=== PATIENT | female | born 1945 | race Caucasian/White ===

== ENCOUNTER 2017-07-05 11:07 | Observation (INO) | payer MEDICARE, MEDICAID ==
[2017-07-05 11:21] VITALS: BMI 24.5
[2017-07-05 13:07] LABS: BASO # 0.1 K/uL (0.0-0.2); BASO % 0.8 % (0.0-2.0); EOS # 0.2 K/uL (0.0-0.7); EOS % 2.5 % (0.0-4.0); HEMATOCRIT 33.9 % (34.0-47.0); LYMPH # 1.6 K/uL (1.0-4.3); LYMPH % 20.9 % (20.0-40.0); MEAN CORPUSCULAR HGB CONC 33.2 g/dL (33.0-37.0); MEAN PLATELET VOLUME 7.7 fL (7.2-11.7); MONO # 0.6 K/uL (0.0-0.8); NRBC % 0.1 % (0.0-2.0); RED CELL DISTRIBUTION WIDTH 16.2 % (11.5-14.5); WHITE BLOOD COUNT 7.9 K/uL (4.8-10.8)
[2017-07-05 13:08] LABS: MEAN CELL VOLUME 99.5 fL (81.0-99.0)
[2017-07-05 13:09] LABS: ALB/GLOB RATIO 1.3 (1.0-2.1); BILIRUBIN,TOTAL 0.9 mg/dL (0.2-1.3); CALCIUM 10.2 mg/dl (8.6-10.4); POTASSIUM 5.4 mmol/L (3.6-5.2)
--- NOTE | 2017-07-05 14:52 | CP.PCM.CON ---
History of Present Illness - History of Present Illness History of Present Illness: renal note: pt just returned from [facility], was there for 2 months feels well no complaints such as SOB, pain had appendectomy 1 month ago labs and vitals reviewed PLAN dialysis today as ordered, TTS schedule check hepatitis serology as ordered social work manager consult to re-arrange for outpt HD, pt has spot to go for outpt HD on once arranged for outpt HD, she can be d/c from renal perspective d/w daughter d/w ER staff Past Patient History - Past Medical History & Family History Past Medical History?: Yes - Past Social History Smoking Status: Former Smoker - CARDIAC Hx Cardiac Disorders: Yes Hx Hypercholesterolemia: Yes Hx Hypertension: Yes - PULMONARY Hx Respiratory Disorders: No - NEUROLOGICAL Hx Neurological Disorder: No - HEENT Hx HEENT Problems: Yes Hx Cataracts: Yes (bilateral) - RENAL Hx Chronic Kidney Disease: Yes Other/Comment: L AV upper arm shunt. TTS dialysis - ENDOCRINE/METABOLIC Hx Endocrine Disorders: Yes Hx Hypothyroidism: Yes - HEMATOLOGICAL/ONCOLOGICAL Hx Blood Disorders: Yes Hx Anemia: Yes - INTEGUMENTARY Hx Dermatological Problems: No - MUSCULOSKELETAL/RHEUMATOLOGICAL Hx Falls: No - GASTROINTESTINAL Hx Gastrointestinal Disorders: Yes Hx Gastroesophageal Reflux: Yes - GENITOURINARY/GYNECOLOGICAL Hx Genitourinary Disorders: No - PSYCHIATRIC Hx Substance Use: No - SURGICAL HISTORY Hx Surgeries: Yes Hx Appendectomy: Yes Hx Coronary Stent: Yes Other/Comment: left AV shunt placement october 21 2015. Uterus removal 2012. cataract surgery - ANESTHESIA Hx Anesthesia: Yes Hx Anesthesia Reactions: No Hx Malignant Hyperthermia: No Meds Allergies/Adverse Reactions: Allergies Allergy/AdvReac Type Severity Reaction Status Date / Time Penicillins Allergy Verified 07/05/17 11:20 Results - Vital Signs Recent Vital Signs: Last Vital Signs Temp 97.3 F L 07/05/17 12:11 Pulse 81 07/05/17 13:10 Resp 18 07/05/17 13:10 BP 105/76 07/05/17 13:10 Pulse Ox 100 07/05/17 13:10 - Labs Result Diagrams: 07/05/17 12:47 07/05/17 12:47 Labs: Laboratory Results - last 24 hr 07/05/17 07/05/17 12:47 12:47 WBC 7.9 RBC 3.41 L Hgb 11.3 D Hct 33.9 L MCV 99.5 H D MCH 33.0 H MCHC 33.2 RDW 16.2 H Plt Count 284 MPV 7.7 Neut % (Auto) 68.8 Lymph % (Auto) 20.9 [place] % (Auto) 7.0 Eos % (Auto) 2.5 Baso % (Auto) 0.8 Neut # 5.4 Lymph # 1.6 [place] # 0.6 Eos # 0.2 Baso # 0.1 Sodium 136 Potassium 5.4 H Chloride 99 Carbon Dioxide 23 Anion Gap 19 BUN 60 H Creatinine 6.9 H Est GFR ( Amer) 7 Est GFR (Non-Af Amer) 6 Random Glucose 71 Calcium 10.2 Total Bilirubin 0.9 AST 34 ALT 28 Alkaline Phosphatase 67 Total Protein 8.0 Albumin 4.4 Globulin 3.5 Albumin/Globulin Ratio 1.3
--- NOTE | 2017-07-05 14:56 | C.PDOC ---
History Of Present Illness Pt went to [facility] for 2 months and returned 2 days ago. However she is in the ED because her dialysis center would not take her back and she is due for dialysis today. Time Seen by Provider: 07/05/17 12:00 Chief Complaint (Nursing): Medical Clearance History Per: Patient, Family Onset/Duration Of Symptoms: Days (3) Current Symptoms Are (Timing): Still Present Severity: Moderate Recent travel outside of the [place]: Yes (to [facility]) Additional History Per: Prior Records Past Medical History Reviewed: Historical Data, Nursing Documentation, Vital Signs Vital Signs: Last Vital Signs Temp 97.3 F L 07/05/17 12:11 Pulse 81 07/05/17 13:10 Resp 18 07/05/17 13:10 BP 105/76 07/05/17 13:10 Pulse Ox 100 07/05/17 13:10 - Medical History PMH: Anemia, Arthritis, Diabetes, HTN, Hypercholesterolemia, Hypothyroidism, Malignancy (Breast), Osteoporosis, End Stage Renal Disease (on Hemodialysis), Chronic Kidney Disease Surgical History: Appendectomy, Coronary Stent - [facility] Procedures BYPASS L AXILLA ART TO UP ARM VEIN W AUTOL ART, OPEN (10/14/15) DPT ADMINISTRATION (03/15/13) DX ULTRASOUND-HEAD/NECK (06/20/13) EXTIRPATION OF MATTER FROM L BRACH ART, OPEN APPROACH (10/14/15) IMMOBILIZ/WOUND ATTN NEC (03/15/13) LAPAROSCOPIC CHOLECYSTECTOMY (05/07/13) OTHER LAPAROSCOPIC UMBILICAL HERNIORRHAPHY (05/07/13) PERCUTAN NEEDLE BX OF THYROID GLAND (06/20/13) PERFORMANCE OF URINARY FILTRATION, MULTIPLE (11/17/15) Family History: States: Unknown Family Hx - Social History Hx Tobacco Use: Yes Hx Alcohol Use: No Hx Substance Use: No - Immunization History Hx Tetanus Toxoid Vaccination: Yes Hx Influenza Vaccination: Yes Hx Pneumococcal Vaccination: Yes Review Of Systems Except As Marked, All Systems Reviewed And Found Negative. Constitutional: Negative for: Fever Cardiovascular: Negative for: Chest Pain Respiratory: Negative for: Shortness of Breath Gastrointestinal: Negative for: Vomiting, Abdominal Pain Musculoskeletal: Negative for: Neck Pain, Back Pain Neurological: Negative for: Weakness, Numbness Physical Exam - Physical Exam Appears: Non-toxic, No Acute Distress, Chronically Ill Skin: Normal Color, Warm, Dry, No Rash Head: Atraumatic, Normacephalic Eye(s): bilateral: PERRL, EOMI Neck: Normal ROM, Supple Cardiovascular: Rhythm Regular Respiratory: Normal Breath Sounds, No Accessory Muscle Use Gastrointestinal/Abdominal: Soft, No Tenderness Extremity: Normal ROM, Other (dialysis fistula on left arm with good thrill) Neurological/Psych: Oriented x3, Normal Motor, Normal Sensation ED Course And Treatment - Laboratory Results Result Diagrams: 07/05/17 12:47 07/05/17 12:47 ECG: Interpreted By Me, Viewed By Me ECG Rhythm: Sinus Rhythm, Nonspecific Changes ECG Interpretation: No Acute Changes Rate From EC O2 Sat by Pulse Oximetry: 100 Pulse Ox Interpretation: Normal - Physician Consult Information Physician Contacted: Chente James (Renal) Outcome Of Conversation: He will dialyse pt today. Disposition Discussed With : Varghese Jett Comment: He accepted pt on his service. Doctor Will See Patient In The: Hospital Counseled Patient/Family Regarding: Studies Performed, Diagnosis - Disposition Disposition: HOSPITALIZED Disposition Time: 14:59 Condition: FAIR - Clinical Impression Clinical Impression: ESRD needing dialysis
--- NOTE | 2017-07-05 17:40 | CP.PCM.HP ---
Past Patient History - Past Medical History & Family History Past Medical History?: Yes - Past Social History Smoking Status: Former Smoker - CARDIAC Hx Hypercholesterolemia: Yes Hx Hypertension: Yes - PULMONARY Hx Respiratory Disorders: No - NEUROLOGICAL Hx Neurological Disorder: No - HEENT Hx HEENT Problems: Yes Hx Cataracts: Yes (bilateral) - RENAL Hx Chronic Kidney Disease: Yes - ENDOCRINE/METABOLIC Hx Hypothyroidism: Yes - HEMATOLOGICAL/ONCOLOGICAL Hx Anemia: Yes - INTEGUMENTARY Hx Dermatological Problems: No - MUSCULOSKELETAL/RHEUMATOLOGICAL Hx Arthritis: Yes Hx Osteoporosis: Yes - GASTROINTESTINAL Hx Gastrointestinal Disorders: Yes Hx Gastroesophageal Reflux: Yes - GENITOURINARY/GYNECOLOGICAL Hx Genitourinary Disorders: No - PSYCHIATRIC Hx Substance Use: No - SURGICAL HISTORY Hx Appendectomy: Yes Hx Coronary Stent: Yes - ANESTHESIA Hx Anesthesia: Yes Hx Anesthesia Reactions: No Hx Malignant Hyperthermia: No Meds Allergies/Adverse Reactions: Allergies Allergy/AdvReac Type Severity Reaction Status Date / Time Penicillins Allergy Verified 07/05/17 11:20 Physical Exam - Constitutional Appears: Well - Head Exam Head Exam: ATRAUMATIC, NORMAL INSPECTION, NORMOCEPHALIC - Eye Exam Eye Exam: EOMI, Normal appearance, PERRL Pupil Exam: NORMAL ACCOMODATION, PERRL - ENT Exam ENT Exam: Mucous Membranes Moist, Normal Exam - Neck Exam Neck exam: Positive for: Normal Inspection - Respiratory Exam Respiratory Exam: Decreased Breath Sounds - Cardiovascular Exam Cardiovascular Exam: REGULAR RHYTHM, +S1, +S2 - GI/Abdominal Exam GI & Abdominal Exam: Diminished Bowel Sounds, Soft - Rectal Exam Rectal Exam: Deferred Results - Vital Signs Recent Vital Signs: Last Vital Signs Temp 97.6 F 07/05/17 16:35 Pulse 68 07/05/17 16:35 Resp 18 07/05/17 16:35 BP 190/109 H 07/05/17 17:05 Pulse Ox 96 07/05/17 16:35 - Labs Result Diagrams: 07/05/17 12:47 07/05/17 12:47 Labs: Laboratory Results - last 24 hr 07/05/17 07/05/17 07/05/17 12:47 12:47 15:10 WBC 7.9 RBC 3.41 L Hgb 11.3 D Hct 33.9 L MCV 99.5 H D MCH 33.0 H MCHC 33.2 RDW 16.2 H Plt Count 284 MPV 7.7 Neut % (Auto) 68.8 Lymph % (Auto) 20.9 [place] % (Auto) 7.0 Eos % (Auto) 2.5 Baso % (Auto) 0.8 Neut # 5.4 Lymph # 1.6 [place] # 0.6 Eos # 0.2 Baso # 0.1 Sodium 136 Potassium 5.4 H Chloride 99 Carbon Dioxide 23 Anion Gap 19 BUN 60 H Creatinine 6.9 H Est GFR ( Amer) 7 Est GFR (Non-Af Amer) 6 Random Glucose 71 Calcium 10.2 Total Bilirubin 0.9 AST 34 ALT 28 Alkaline Phosphatase 67 Total Protein 8.0 Albumin 4.4 Globulin 3.5 Albumin/Globulin Ratio 1.3 Hep Bs Antigen Negative Hep Bs Antibody Hep B Core IgM Ab Negative Hepatitis C Antibody Negative 07/05/17 15:10 WBC RBC Hgb Hct MCV MCH MCHC RDW Plt Count MPV Neut % (Auto) Lymph % (Auto) [place] % (Auto) Eos % (Auto) Baso % (Auto) Neut # Lymph # [place] # Eos # Baso # Sodium Potassium Chloride Carbon Dioxide Anion Gap BUN Creatinine Est GFR ( Amer) Est GFR (Non-Af Amer) Random Glucose Calcium Total Bilirubin AST ALT Alkaline Phosphatase Total Protein Albumin Globulin Albumin/Globulin Ratio Hep Bs Antigen Hep Bs Antibody Positive Hep B Core IgM Ab Hepatitis C Antibody
[2017-07-05 22:37] VITALS: RESP 20
[2017-07-06 08:19] VITALS: TEMP 98.2; O2SAT 95
[2017-07-06] MEDS ORDERED: Pantoprazole 40 mg EC Tab PO SCH ×2 (10:00)
[2017-07-06] MEDS ORDERED: Multivitamin Vitamin B Complex (Nephro-Vite) Tab PO SCH (10:00)
[2017-07-06] MEDS ORDERED: FERRIC CITRATE PO SCH (10:00)
[2017-07-06] MEDS ORDERED: Home Med 1 UNIT (Febuxostat [Uloric] 40 MG) PO SCH (10:00)
--- NOTE | 2017-07-06 12:24 | CP.PCM.PN ---
Subjective - Date & Time of Evaluation Date of Evaluation: 07/06/17 Time of Evaluation: 12:23 - Subjective Subjective: had HD yesterday next HD tomorrow, hopefully as outpt in her dialysis unit d/w SW about d/c planning. Objective - Vital Signs/Intake and Output Vital Signs (last 24 hours): Temp Pulse Resp BP Pulse Ox 98.2 F 62 20 160/71 H 95 07/06/17 08:18 07/06/17 08:18 07/06/17 08:18 07/06/17 08:18 07/06/17 08:18 Intake and Output: 07/06/17 07/06/17 06:59 18:59 Intake Total 240 Balance 240 - Medications Medications: Current Medications Amlodipine Besylate (Norvasc) 10 mg PO DAILY [facility] Last Admin: 07/06/17 09:14 Dose: 10 mg Heparin Sodium (Porcine) (Heparin) 5,000 units SC Q8 [facility] Last Admin: 07/06/17 05:12 Dose: 5,000 units Home Med (Febuxostat [Uloric]) 40 mg PO DAILY [facility] Home Med (Ferric Citrate [Auryxia]) 1 tab PO TID [facility] Hydralazine HCl (Apresoline) 25 mg PO Q4 PRN PRN Reason: Other Hydralazine HCl (Apresoline) 50 mg PO BID [facility] Pantoprazole Sodium (Protonix Ec Tab) 40 mg PO DAILY [facility] Last Admin: 07/06/17 09:15 Dose: 40 mg Pantoprazole Sodium (Protonix Ec Tab) 40 mg PO DAILY [facility] Last Admin: 07/06/17 09:16 Dose: Not Given Vitamin B Complex/Vit C/Folic Acid (Nephro-Scott) 1 tab PO DAILY [facility] Last Admin: 07/06/17 09:14 Dose: 1 tab - Labs Labs: 07/05/17 12:47 07/05/17 12:47
--- NOTE | 2017-07-06 15:28 | CP.PCM.PN ---
Subjective - Date & Time of Evaluation Date of Evaluation: 07/06/17 Time of Evaluation: 15:27 - Subjective Subjective: PT SEEN BY DR. Jesús GUSMAN AND CHARGING MANIPULATOR DURING ROUNDS; CLEARED FOR D/C HOME TODAY. MARTHA AVILES ARRANGED PT TO RESTART HER USUAL HD TOMORROW AT [facility] AT 2PM. WILL F/U WITH PMD, DR. Jesús GUSMAN AND LASER ENGRAVER. PT AND FAMILY UNDERSTAND D/C PLAN AND VERBALIZE UNDERSTANDING. NO FURTHER ORDERS. Objective - Vital Signs/Intake and Output Vital Signs (last 24 hours): Temp Pulse Resp BP Pulse Ox 98.2 F 62 20 160/71 H 95 07/06/17 08:18 07/06/17 08:18 07/06/17 08:18 07/06/17 08:18 07/06/17 08:18 Intake and Output: 07/06/17 07/06/17 06:59 18:59 Intake Total 240 780 Balance 240 780 - Medications Medications: Current Medications Amlodipine Besylate (Norvasc) 10 mg PO DAILY [facility] Last Admin: 07/06/17 09:14 Dose: 10 mg Heparin Sodium (Porcine) (Heparin) 5,000 units SC Q8 [facility] Last Admin: 07/06/17 13:29 Dose: 5,000 units Home Med (Febuxostat [Uloric]) 40 mg PO DAILY [facility] Home Med (Ferric Citrate [Auryxia]) 1 tab PO TID [facility] Hydralazine HCl (Apresoline) 25 mg PO Q4 PRN PRN Reason: Other Hydralazine HCl (Apresoline) 50 mg PO BID [facility] Pantoprazole Sodium (Protonix Ec Tab) 40 mg PO DAILY [facility] Last Admin: 07/06/17 09:15 Dose: 40 mg Pantoprazole Sodium (Protonix Ec Tab) 40 mg PO DAILY [facility] Last Admin: 07/06/17 09:16 Dose: Not Given Vitamin B Complex/Vit C/Folic Acid (Nephro-Scott) 1 tab PO DAILY [facility] Last Admin: 07/06/17 09:14 Dose: 1 tab - Labs Labs: 07/05/17 12:47 07/05/17 12:47
[2017-07-06 15:45] VITALS: BP 178/76; PULSE 77
--- NOTE | 2017-07-07 12:54 | CARD ---
APPROVED REPORT EKG Measurement Heart [id number] <Conclusion> Normal sinus rhythm Nonspecific T wave abnormality Abnormal ECG
== END 2017-07-06 17:32 | disposition home or self-care (01) ==
LOC: C.ER 11:07 → C.9E 15:00 → C.3T 16:33
PROVIDERS: ADMIT Internal Medicine Nephrology; ATTEND Internal Medicine Nephrology
DX: I12.0 Hypertensive chronic kidney disease with stage 5 chronic kidney disease or end stage renal disease (principal); N18.6 End stage renal disease; Z99.2 Dependence on renal dialysis; Z87.891 Personal history of nicotine dependence
CPT/HCPCS: 80053; 85025; 86705; 86706; 86803; 87340; 99284; G0378; J1644